=== PATIENT | female | born 1935 | race Caucasian/White ===

== ENCOUNTER → 2018-03-04 | Outpatient (CLI) | payer MEDICARE, OTHER ==
--- NOTE | 2018-03-04 12:44 | FL ---
MODIFIED SWALLOW / DEGLUTITION STUDY DATE OF EXAM: 03/04/2018 CLINICAL HISTORY: 82-year-old female with dementia, Dysphagia. Some coughing with eating. TECHNIQUE: Deglutition study is performed utilizing thin liquid barium, honey and nectar thick liqui d barium, barium thick applesauce, and barium coated cracker. COMPARISON: None. Total fluoroscopy time: 2.49 minutes. Total images: None. Real-time fluoroscopy support was provided to speech pathology. FINDINGS: Swallow initiation was mildly delayed with occasional bolus free spilling to the level of the val[place]. Piecemeal swallow is noted. The patient is edentulous but otherwise normal mastication is seen wi th solid modalities tested. Thin liquids shows transient penetration with straw, improved with a cup . No other penetration or aspiration is seen. Mild residuals are noted with solids. IMPRESSION: 1. Transient penetration of thin liquids with a straw, improved with a cup. No aspiration. 2. Mild delayed swallow and mild residuals. 3. Please refer to speech therapist notes for further details if necessary.
== END | disposition home or self-care (01) ==
LOC: EEVIPCON 11:07 → RADFLMAIN 11:07
PROVIDERS: ATTEND Family Medicine
DX: R13.10 Dysphagia, unspecified (principal); E53.8 Deficiency of other specified B group vitamins; G30.1 Alzheimer's disease with late onset
CPT/HCPCS: 74230